=== PATIENT | male | born 1940 | race Caucasian/White ===

== ENCOUNTER 2017-09-19 13:48 | Emergency (ER) | payer OTHER | END 2017-09-19 14:57 | disposition home or self-care (01) | LOC: M ED 13:48 | DX: J44.9 Chronic obstructive pulmonary disease, unspecified (principal); I51.9 Heart disease, unspecified; Z95.5 Presence of coronary angioplasty implant and graft; Z87.891 Personal history of nicotine dependence; Z79.82 Long term (current) use of aspirin; Z79.899 Other long term (current) drug therapy | CPT/HCPCS: 99283 ==

== ENCOUNTER 2017-11-21 11:41 | Emergency (ER) | payer OTHER ==
[2017-11-21] MEDS ORDERED: MORPHINE 4 MG/ML 1ML VIAL (J2270) IV (12:30)
[2017-11-21] MEDS ORDERED: ONDANSETRON 4MG/2ML VIAL (J2405) IV (12:30)
[2017-11-21] MEDS: NS 1,000 ML IV (12:30)
[2017-11-21 12:53] LABS: BASO # 0.1 10^3/uL (0.0-0.2); EOS # 0.2 10^3/uL (0.0-0.50); EOS % 1.7 % (0.0-3.0); HEMATOCRIT 42.3 % (42.0-52.0); IMMATURE GRANULOCYTE % 0.2 % (0-3.0); LYMPH # 1.4 10^3/uL (1.5-4.5); LYMPH % 15.2 % (24.0-44.0); MEAN CORPUSCULAR HEMOGLOBIN 31.1 pg (27.0-33.0); MEAN CORPUSCULAR HGB CONC 33.1 g/dl (32.0-36.5); MONO # 0.9 10^3/uL (0.0-0.8); MONO % 9.9 % (0.0-5.0); NEUTROPHILS # 6.7 10^3/uL (1.8-7.7); PLATELET COUNT, AUTOMATED 268 10^3/uL (150-450); WHITE BLOOD COUNT 9.3 10^3/uL (4.0-10.0)
[2017-11-21 13:21] LABS: ANION GAP 7 MEQ/L (8-16); BLOOD UREA NITROGEN 18 MG/DL (7-18); CALCIUM LEVEL 8.5 MG/DL (8.8-10.2); CARBON DIOXIDE LEVEL 22 MEQ/L (21-32); CHLORIDE LEVEL 109 MEQ/L (98-107); CREATININE FOR GFR 1.52 MG/DL (0.70-1.30); FREE T4 0.87 NG/DL (0.76-1.46); GLOMERULAR FILTRATION RATE 47.6 (>42); GLUCOSE, FASTING 93 MG/DL (70-100); POTASSIUM SERUM 3.9 MEQ/L (3.5-5.1); SODIUM LEVEL 138 MEQ/L (136-145)
[2017-11-21] MEDS: ACETAMINOPHEN 325 MG TAB PO (13:21)
[2017-11-21] MEDS ORDERED: ISOVUE-370 76% 100ML VIAL (Q9967) As Ordered (13:29)
== END 2017-11-21 14:56 | disposition home or self-care (01) ==
LOC: M ED 11:41
DX: R13.10 Dysphagia, unspecified (principal); K21.9 Gastro-esophageal reflux disease without esophagitis; Z79.82 Long term (current) use of aspirin; Z79.899 Other long term (current) drug therapy
CPT/HCPCS: Q9967

== ENCOUNTER → 2018-01-13 | Outpatient (CLI) | payer OTHER ==
[~2018-01-13] MED LIST: E-Z-GAS II EFFERVESCENT PACKET (SODIUM BICARB./CITRIC ACID/SIMETHICONE) As Ordered; E-Z-HD 98% w/w 340GM SUSP BTL As Ordered; E-Z-PAQUE 96% w/w SUSP 176GM BTL As Ordered
== END ==
LOC: M RAD 08:34
DX: R93.3 Abnormal findings on diagnostic imaging of other parts of digestive tract (principal); J38.3 Other diseases of vocal cords
CPT/HCPCS: 74220

== ENCOUNTER 2018-04-27 08:44 | Day surgery (SDC) | payer MEDICARE, OTHER ==
[2018-04-27] MEDS: NS 1,000 ML IV (09:00)
[2018-04-27] MEDS ORDERED: LIDOCAINE 1% MDV 20ML VIAL As Ordered (10:56)
[2018-04-27] MEDS ORDERED: PROPOFOL 200 MG/20 ML VIAL As Ordered ×2 (10:56→11:06)
[2018-04-27] MEDS ORDERED: PHENYLephrine HCL 500 MCG/5 ML (100MCG/ML) SYRINGE (J2370) As Ordered (11:05)
== END 2018-04-27 11:39 | disposition home or self-care (01) ==
LOC: M OPP 08:44
DX: R13.12 Dysphagia, oropharyngeal phase (principal); R12 Heartburn; K22.2 Esophageal obstruction; I12.9 Hypertensive chronic kidney disease with stage 1 through stage 4 chronic kidney disease, or unspecified chronic kidney disease; Z95.5 Presence of coronary angioplasty implant and graft; I25.10 Atherosclerotic heart disease of native coronary artery without angina pectoris; E78.5 Hyperlipidemia, unspecified; E03.9 Hypothyroidism, unspecified; K21.9 Gastro-esophageal reflux disease without esophagitis; D64.9 Anemia, unspecified; M19.90 Unspecified osteoarthritis, unspecified site; F32.9 Major depressive disorder, single episode, unspecified; Z85.46 Personal history of malignant neoplasm of prostate; Z92.3 Personal history of irradiation; J44.9 Chronic obstructive pulmonary disease, unspecified; G47.30 Sleep apnea, unspecified; N18.3 Chronic kidney disease, stage 3 (moderate); H25.9 Unspecified age-related cataract; Z87.891 Personal history of nicotine dependence; Z79.82 Long term (current) use of aspirin; Z79.899 Other long term (current) drug therapy; Z79.02 Long term (current) use of antithrombotics/antiplatelets; Z80.1 Family history of malignant neoplasm of trachea, bronchus and lung
CPT/HCPCS: 43450

== ENCOUNTER 2018-06-08 13:18 | Emergency (ER) | payer MEDICARE ==
[2018-06-08 14:18] LABS: BASO % 0.1 % (0.0-1.0); EOS % 0.1 % (0.0-3.0); HEMATOCRIT 35.5 % (42.0-52.0); IMMATURE GRANULOCYTE % 2.2 % (0-3.0); LYMPH # 0.9 10^3/uL (1.5-4.5); LYMPH % 7.5 % (24.0-44.0); MEAN CORPUSCULAR HEMOGLOBIN 32.2 pg (27.0-33.0); MEAN CORPUSCULAR HGB CONC 33.8 g/dl (32.0-36.5); MEAN CORPUSCULAR VOLUME 95.2 fl (80.0-96.0); MONO # 0.7 10^3/uL (0.0-0.8); MONO % 5.7 % (0.0-5.0); NEUTROPHILS # 10.2 10^3/uL (1.8-7.7); NEUTROPHILS % 84.4 % (36.0-66.0); PLATELET COUNT, AUTOMATED 289 10^3/uL (150-450); RED BLOOD COUNT 3.73 10^6/uL (4.30-6.10); RED CELL DISTRIBUTION WIDTH 12.3 % (11.5-14.5)
[2018-06-08] MEDS: methylPREDNISolone INJ 125 MG/2 ML VIAL (J2930) IV (14:19)
[2018-06-08] MEDS: IPRATROPIUM 0.5MG/ALBUTEROL 2.5MG INH SOL UD 3ML (DUONEB)(J7620) NEB (14:34)
[2018-06-08] MEDS: ALBUTEROL SULFATE 2.5 MG/0.5 ML INH NEB SOLN INH (14:34)
[2018-06-08 14:39] LABS: ABG BASE EXCESS -4.1 (-2.0-2.0); ABG HCO3 19.5 MEQ/L (22.0-26.0); ABG O2 SATURATION 97.7 % (95.0-99.0); ABG PARTIAL PRESSURE CO2 31.2 mmHg (35.0-45.0); ABG PARTIAL PRESSURE O2 93.8 mmHg (75.0-100.0); ABG STANDARD HCO3 21.1 MEQ/L (22.0-26.0); ABG TOTAL CO2 20.4 MEQ/L (23.0-31.0); ABG pH (ARTERIAL) 7.413 UNITS (7.350-7.450)
[2018-06-08 14:49] LABS: ALBUMIN 3.4 GM/DL (3.2-5.2); ALBUMIN/GLOBULIN RATIO 1.13 (1.00-1.93); ALKALINE PHOSPHATASE 56 U/L (45-117); ALT/SGPT 31 U/L (12-78); ANION GAP 9 MEQ/L (8-16); AST/SGOT 15 U/L (7-37); BILIRUBIN,DIRECT 0.1 MG/DL (0.0-0.2); BILIRUBIN,TOTAL 0.3 MG/DL (0.2-1.0); BLOOD UREA NITROGEN 38 MG/DL (7-18); CALCIUM LEVEL 8.4 MG/DL (8.8-10.2); CARBON DIOXIDE LEVEL 20 MEQ/L (21-32); CHLORIDE LEVEL 111 MEQ/L (98-107); CPK CREATINE PHOSPHOKINASE 100 U/L (39-308); CREATININE FOR GFR 1.72 MG/DL (0.70-1.30); GLOMERULAR FILTRATION RATE 41.1 (>42); GLUCOSE, FASTING 112 MG/DL (70-100); NT-PRO BNP 347 PG/ML (<450); POTASSIUM SERUM 4.2 MEQ/L (3.5-5.1); SODIUM LEVEL 140 MEQ/L (136-145); THYROXINE (T4) 6.6 UG/DL (4.5-12.0); TOTAL PROTEIN 6.4 GM/DL (6.4-8.2); TROPONIN I < 0.02 NG/ML (< 0.10)
[2018-06-08 15:07] LABS: LACTIC ACID SEPSIS PROTOCOL 1.9 MMOL/L (0.4-2.0)
[2018-06-08 15:09] LABS: INFLUENZA A AMPLIFICATION NEGATIVE (NEGATIVE); INFLUENZA B AMPLIFICATION NEGATIVE (NEGATIVE)
[2018-06-08] MEDS: NS 500 ML IV (15:59)
[2018-06-08] MEDS: MOXIFLOXACIN 400 MG TAB PO (16:56)
== END 2018-06-08 17:10 | disposition home or self-care (01) ==
LOC: M ED 13:18
DX: J44.1 Chronic obstructive pulmonary disease with (acute) exacerbation (principal); E86.0 Dehydration; J20.9 Acute bronchitis, unspecified; F32.9 Major depressive disorder, single episode, unspecified; F41.9 Anxiety disorder, unspecified; M19.90 Unspecified osteoarthritis, unspecified site; K21.9 Gastro-esophageal reflux disease without esophagitis; G47.30 Sleep apnea, unspecified; Z95.5 Presence of coronary angioplasty implant and graft; Z87.891 Personal history of nicotine dependence; Z86.79 Personal history of other diseases of the circulatory system; Z79.82 Long term (current) use of aspirin; Z79.899 Other long term (current) drug therapy
CPT/HCPCS: J2930

== ENCOUNTER 2018-06-28 12:04 | Emergency (ER) | payer MEDICARE ==
[2018-06-28 12:40] LABS: BASO % 0.7 % (0.0-1.0); EOS # 0.3 10^3/uL (0.0-0.50); EOS % 5.4 % (0.0-3.0); HEMATOCRIT 36.5 % (42.0-52.0); HEMOGLOBIN 11.8 g/dl (13.5-17.5); IMMATURE GRANULOCYTE % 0.5 % (0-3.0); LYMPH # 0.9 10^3/uL (1.5-4.5); LYMPH % 14.4 % (24.0-44.0); MEAN CORPUSCULAR HEMOGLOBIN 32.1 pg (27.0-33.0); MEAN CORPUSCULAR HGB CONC 32.3 g/dl (32.0-36.5); MEAN CORPUSCULAR VOLUME 99.2 fl (80.0-96.0); MONO # 0.8 10^3/uL (0.0-0.8); MONO % 14.1 % (0.0-5.0); NEUTROPHILS # 3.8 10^3/uL (1.8-7.7); NEUTROPHILS % 64.9 % (36.0-66.0); PLATELET COUNT, AUTOMATED 222 10^3/uL (150-450); RED BLOOD COUNT 3.68 10^6/uL (4.30-6.10); RED CELL DISTRIBUTION WIDTH 12.4 % (11.5-14.5); WHITE BLOOD COUNT 5.9 10^3/uL (4.0-10.0)
[2018-06-28 12:43] LABS: PROTHROMBIN TIME 13.3 SECONDS (12.1-14.4)
[2018-06-28 13:00] LABS: ALBUMIN 3.1 GM/DL (3.2-5.2); ALBUMIN/GLOBULIN RATIO 0.79 (1.00-1.93); ALKALINE PHOSPHATASE 73 U/L (45-117); ALT/SGPT 35 U/L (12-78); ANION GAP 10 MEQ/L (8-16); AST/SGOT 20 U/L (7-37); BILIRUBIN,DIRECT 0.1 MG/DL (0.0-0.2); BILIRUBIN,TOTAL 0.4 MG/DL (0.2-1.0); BLOOD UREA NITROGEN 18 MG/DL (7-18); CALCIUM LEVEL 8.3 MG/DL (8.8-10.2); CARBON DIOXIDE LEVEL 23 MEQ/L (21-32); CHLORIDE LEVEL 109 MEQ/L (98-107); CPK CREATINE PHOSPHOKINASE 82 U/L (39-308); CREATININE FOR GFR 1.87 MG/DL (0.70-1.30); GLOMERULAR FILTRATION RATE 37.4 (>42); GLUCOSE, FASTING 98 MG/DL (70-100); LIPASE 154 U/L (73-393); MB/CK RELATIVE INDEX 2.68 (< OR =4); NT-PRO BNP 280 PG/ML (<450); SODIUM LEVEL 142 MEQ/L (136-145); TROPONIN I < 0.02 NG/ML (< 0.10)
[2018-06-28 17:26] LABS: CPK CREATINE PHOSPHOKINASE 85 U/L (39-308); MB/CK RELATIVE INDEX 2.59 (< OR =4); TROPONIN I < 0.02 NG/ML (< 0.10)
== END 2018-06-28 18:07 | disposition home or self-care (01) ==
LOC: M ED 12:04
DX: R07.9 Chest pain, unspecified (principal); R94.31 Abnormal electrocardiogram [ECG] [EKG]; I12.9 Hypertensive chronic kidney disease with stage 1 through stage 4 chronic kidney disease, or unspecified chronic kidney disease; N18.9 Chronic kidney disease, unspecified; J44.9 Chronic obstructive pulmonary disease, unspecified; E78.5 Hyperlipidemia, unspecified; E07.9 Disorder of thyroid, unspecified; F33.9 Major depressive disorder, recurrent, unspecified; Z85.46 Personal history of malignant neoplasm of prostate; Z92.3 Personal history of irradiation; Z87.891 Personal history of nicotine dependence; Z95.5 Presence of coronary angioplasty implant and graft; Z79.899 Other long term (current) drug therapy; Z79.890 Hormone replacement therapy; Z79.01 Long term (current) use of anticoagulants; Z87.09 Personal history of other diseases of the respiratory system; Z86.79 Personal history of other diseases of the circulatory system
CPT/HCPCS: 71045

== ENCOUNTER 2019-04-07 15:55 | Emergency (ER) | payer MEDICARE, OTHER ==
[~2019-04-07] VITALS: Ht 165.1 cm; Wt 69.1 kg
[~2019-04-07 15:55] MED LIST changes: +ALL10TAB28 PO; +ASPI81TA26 PO; +AVEL1TAB3 PO; +BENZ200C70 PO; +BREO1INH INH; +BUSP10TA; +CART120C PO; +CLOP75TA2 PO; +DILT120C77; +DILT120C77 PO; -E-Z-GAS II EFFERVESCENT PACKET (SODIUM BICARB./CITRIC ACID/SIMETHICONE) As Ordered; -E-Z-HD 98% w/w 340GM SUSP BTL As Ordered; -E-Z-PAQUE 96% w/w SUSP 176GM BTL As Ordered; +FLUTISP; +FOLI1TAB11 PO; +FURO20TA2 PO; +IPRAT-ALBUT; +IRBE75TA5; +ISOS30TA4 PO; +ISOS40TASA PO; +LEVO88TA3 PO; +MAGICMW MT; +MONT10TA2 PO; +NITR0.4S14 SL; +PANT20TA2 PO; +PLAV1TAB2 PO; +PRED10TA2; +PRED20TA PO; +RANI150T PO; +RANI15TA PO; +SERT-141 PO; +SIMV40TA2 PO; +SPIR-10; +SPIR-10 PO; +SUCR1TA PO; +TYLE325T5 PO; +VALS1TAB49 PO; +VALS1TAB66 PO; +VENTAER IN
[2019-04-07] MEDS ORDERED: MIRA3350 PO (16:05)
[2019-04-07] MEDS ORDERED: IPRA0.00 INH (16:19)
[2019-04-07] MEDS ORDERED: AZEL1SPR3 NARES (17:35)
[2019-04-07 18:21] VITALS: BP 131/90
--- NOTE | 2019-04-07 20:52 | ECGEPIP ---
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
== END 2019-04-07 18:22 | disposition home or self-care (01) ==
LOC: M ED 15:55
DX: R09.82 Postnasal drip (principal); J44.9 Chronic obstructive pulmonary disease, unspecified; F41.9 Anxiety disorder, unspecified; J30.9 Allergic rhinitis, unspecified; R30.0 Dysuria; K21.9 Gastro-esophageal reflux disease without esophagitis; I10 Essential (primary) hypertension; E78.5 Hyperlipidemia, unspecified; N18.3 Chronic kidney disease, stage 3 (moderate); Z87.891 Personal history of nicotine dependence; Z79.82 Long term (current) use of aspirin; Z79.899 Other long term (current) drug therapy

== ENCOUNTER 2019-06-28 05:21 | Emergency (ER) | payer MEDICARE, OTHER ==
[~2019-06-28] VITALS: Ht 152.4 cm; Wt 68.2 kg
[~2019-06-28 05:21] MED LIST changes: -ALL10TAB28 PO; +ALL10TAB29 PO; +AZEL1SPR3 NARES; +IPRA0.00 INH; +MIRA3350 PO
[2019-06-28] MEDS ORDERED: PRED25TA PO (05:35)
[2019-06-28] MEDS ORDERED: SYMB16INH INH (05:35)
[2019-06-28] MEDS ORDERED: AMLO2.5T3 PO (05:35)
[2019-06-28] MEDS ORDERED: PANT40TA3 PO (05:35)
[2019-06-28] MEDS ORDERED: LORA0.5T11 PO (05:35)
[2019-06-28] MEDS ORDERED: SERT-138 PO (05:35)
[2019-06-28] MEDS ORDERED: [UNRECOGNIZED DRUG - CODE] NARES (05:35)
[2019-06-28] MEDS ORDERED: FURO20TA2 PO (05:35)
[2019-06-28] MEDS ORDERED: [UNRECOGNIZED DRUG - CODE] PO (06:06)
[2019-06-28 06:30] VITALS: BP 126/80
== END 2019-06-28 06:37 | disposition home or self-care (01) ==
LOC: M ED 05:21
DX: J02.9 Acute pharyngitis, unspecified (principal); J44.9 Chronic obstructive pulmonary disease, unspecified; N18.9 Chronic kidney disease, unspecified; K21.9 Gastro-esophageal reflux disease without esophagitis; I25.10 Atherosclerotic heart disease of native coronary artery without angina pectoris; I12.9 Hypertensive chronic kidney disease with stage 1 through stage 4 chronic kidney disease, or unspecified chronic kidney disease; Z87.891 Personal history of nicotine dependence

== ENCOUNTER → 2019-07-13 | Outpatient (CLI) | payer OTHER ==
[~2019-07-13] MED LIST changes: +AMLO2.5T3 PO; +LORA0.5T11 PO; +PANT40TA3 PO; +PRED25TA PO; +SERT-138 PO; +SYMB16INH INH; +[UNRECOGNIZED DRUG - CODE] NARES; +[UNRECOGNIZED DRUG - CODE] PO
[2019-07-13 14:48] LABS: CREATININE FOR GFR 1.85 MG/DL (0.70-1.30); GLOMERULAR FILTRATION RATE 37.7 (>42)
== END ==
LOC: M LAB 13:44
PROVIDERS: ATTEND Physician Assistant Medical
DX: R13.10 Dysphagia, unspecified (principal)

== ENCOUNTER → 2019-07-15 | Outpatient (CLI) | payer OTHER ==
[2019-07-15 11:21] LABS: CREATININE FOR GFR 1.54 MG/DL (0.70-1.30); GLOMERULAR FILTRATION RATE 46.6 (>42)
== END ==
LOC: M LAB 10:14
PROVIDERS: ATTEND Otolaryngology
DX: R13.0 Aphagia (principal); R49.0 Dysphonia

== ENCOUNTER → 2019-07-20 | Outpatient (CLI) | payer OTHER ==
[~2019-07-20] MED LIST changes: +ISOVUE-370 76% 100ML VIAL (Q9967) As Ordered ONE
--- NOTE | 2019-07-20 10:34 | REP ---
CT neck: 07/20/2019. Indication: Dysphasia. Comparison: 11/21/2017. Technique: Axial images of the neck soft tissues were obtained following 75 ml IV Isovue 370 administration with coronal and sagittal reconstructions provided. New findings: No abnormal solid soft tissue masses, abnormal fluid collections or cervical lymphadenopathy are present. The vascular structures are stable. The airway is patent. No acute ocular, intraorbital or intracranial abnormalities are detected. No significant air-fluid levels are present within the visualized paranasal sinuses/mastoid air cells. Impression: No abnormal solid neck soft tissue mass, abnormal fluid collection or cervical lymphadenopathy. Electronically Signed by Clyde Machuca DO 07/20/2019 10:26 A
== END ==
LOC: M RAD 09:33
PROVIDERS: ATTEND Physician Assistant Medical
DX: R13.10 Dysphagia, unspecified (principal)
CPT/HCPCS: 70491; Q9967

== ENCOUNTER 2020-04-25 17:30 | Emergency (ER) | payer OTHER, MEDICARE ==
[~2020-04-25 17:30] MED LIST changes: -ALL10TAB29 PO; +CETI-24 PO; +IRBE75TA4; -IRBE75TA5; -ISOVUE-370 76% 100ML VIAL (Q9967) As Ordered ONE; -LORA0.5T11 PO; +LORA0.5T5 PO; -MONT10TA2 PO; +MONT10TA4 PO; -PANT20TA2 PO; +PANT20TA6 PO; +PANT40TA29 PO; -PANT40TA3 PO; -SIMV40TA2 PO; +SIMV40TA20 PO; -VALS1TAB49 PO; +VALS40TA9 PO; +dexameTHASONE 20MG/5ML VIAL (J1100 PER 1MG) As Ordered ONE
[2020-05-28 12:50] LABS: BASO % 0.3 % (0.0-1.0); EOS % 0.1 % (0.0-3.0); HEMATOCRIT 36.4 % (42.0-52.0); HEMOGLOBIN 11.8 g/dl (13.5-17.5); LYMPH # 0.6 10^3/uL (1.5-5.0); LYMPH % 6.3 % (24.0-44.0); MEAN CORPUSCULAR HGB CONC 32.4 g/dl (32.0-36.5); MEAN CORPUSCULAR VOLUME 98.6 fl (80.0-96.0); MONO # 0.7 10^3/uL (0.0-0.8); MONO % 7.7 % (0.0-5.0); NEUTROPHILS # 7.9 10^3/uL (1.5-8.5); NEUTROPHILS % 84.7 % (36.0-66.0); PLATELET COUNT, AUTOMATED 225 10^3/uL (150-450); RED BLOOD COUNT 3.69 10^6/uL (4.30-6.10); WHITE BLOOD COUNT 9.3 10^3/uL (4.0-10.0)
[2020-06-08 11:55] LABS: ALBUMIN 3.5 GM/DL (3.2-5.2); ALT/SGPT 32 U/L (12-78); BILIRUBIN,TOTAL 0.2 MG/DL (0.2-1.0); BLOOD UREA NITROGEN 21 MG/DL (7-18); CALCIUM LEVEL 8.5 MG/DL (8.8-10.2); CARBON DIOXIDE LEVEL 24 MEQ/L (21-32); CHLORIDE LEVEL 108 MEQ/L (98-107); CK-MB VALUE MASS 1.9 NG/ML (<3.6); CPK CREATINE PHOSPHOKINASE 66 U/L (39-308); CREATININE FOR GFR 1.74 MG/DL (0.70-1.30); GLOMERULAR FILTRATION RATE 40.4 (>35); GLUCOSE, FASTING 111 MG/DL (70-100); MB/CK RELATIVE INDEX 2.88 (< OR =4); NT-PRO BNP 545 PG/ML (<450); POTASSIUM SERUM 4.7 MEQ/L (3.5-5.1); SODIUM LEVEL 140 MEQ/L (136-145); TOTAL PROTEIN 6.1 GM/DL (6.4-8.2); TROPONIN I < 0.02 NG/ML (< 0.10)
== END 2020-04-25 18:57 | disposition home or self-care (01) ==
LOC: M ED 17:30
DX: J44.1 Chronic obstructive pulmonary disease with (acute) exacerbation (principal); C61 Malignant neoplasm of prostate; I10 Essential (primary) hypertension; F17.210 Nicotine dependence, cigarettes, uncomplicated; Z79.899 Other long term (current) drug therapy
CPT/HCPCS: 71046; 80053; 82550; 82553; 83880; 84484; 85025; 87581; 87633; 87798; 96374; 99284; J1100

== ENCOUNTER 2020-05-22 14:17 | Emergency (ER) | payer MEDICARE, OTHER ==
[~2020-05-22] VITALS: Ht 152.4 cm; Wt 74.9 kg
[~2020-05-22 14:17] MED LIST changes: -dexameTHASONE 20MG/5ML VIAL (J1100 PER 1MG) As Ordered ONE
[2020-05-22 14:52] LABS: BASO # 0.1 10^3/uL (0.0-0.2); BASO % 0.5 % (0.0-1.0); EOS % 0.1 % (0.0-3.0); HEMATOCRIT 36.9 % (42.0-52.0); LYMPH # 0.7 10^3/uL (1.5-5.0); LYMPH % 6.4 % (24.0-44.0); MEAN CORPUSCULAR HEMOGLOBIN 32.3 pg (27.0-33.0); MEAN CORPUSCULAR HGB CONC 32.5 g/dl (32.0-36.5); MEAN CORPUSCULAR VOLUME 99.2 fl (80.0-96.0); MONO # 0.5 10^3/uL (0.0-0.8); MONO % 4.6 % (0.0-5.0); NEUTROPHILS # 9.3 10^3/uL (1.5-8.5); NEUTROPHILS % 87.1 % (36.0-66.0); PLATELET COUNT, AUTOMATED 235 10^3/uL (150-450); RED BLOOD COUNT 3.72 10^6/uL (4.30-6.10); WHITE BLOOD COUNT 10.7 10^3/uL (4.0-10.0)
--- NOTE | 2020-05-22 14:56 | REPVR ---
PROCEDURE INFORMATION: Exam: XR Chest, 1 View Exam date and time: 05/22/2020 2:26 PM Age: 80 years old Clinical indication: Shortness of breath; Additional info: Dyspnea/cough TECHNIQUE: Imaging protocol: XR of the chest Views: 1 view. COMPARISON: CR PORTABLE CHEST X-RAY 06/28/2018 12:45 PM FINDINGS: Lungs: Unremarkable. No consolidation. Pleural space: Unremarkable. No pleural effusion. No pneumothorax. Heart/Mediastinum: Unremarkable. No cardiomegaly. Bones/joints: Unremarkable. IMPRESSION: No acute findings. Electronically signed by: Jhonatan Anthony On 05/22/2020 14:56:47 PM
[2020-05-22 15:23] LABS: ALBUMIN 3.5 GM/DL (3.2-5.2); ALT/SGPT 38 U/L (12-78); BILIRUBIN,DIRECT < 0.1 MG/DL (0.0-0.2); BILIRUBIN,TOTAL 0.3 MG/DL (0.2-1.0); BLOOD UREA NITROGEN 17 MG/DL (7-18); CALCIUM LEVEL 8.6 MG/DL (8.8-10.2); CARBON DIOXIDE LEVEL 25 MEQ/L (21-32); CHLORIDE LEVEL 109 MEQ/L (98-107); CK-MB VALUE MASS 3.2 NG/ML (<3.6); CPK CREATINE PHOSPHOKINASE 80 U/L (39-308); CREATININE FOR GFR 1.77 MG/DL (0.70-1.30); GLOMERULAR FILTRATION RATE 39.6 (>35); GLUCOSE, FASTING 113 MG/DL (70-100); POTASSIUM SERUM 4.7 MEQ/L (3.5-5.1); SODIUM LEVEL 141 MEQ/L (136-145); TOTAL PROTEIN 6.3 GM/DL (6.4-8.2); TROPONIN I < 0.02 NG/ML (< 0.10)
[2020-05-22] MEDS ORDERED: BREO1INH PO (16:15)
[2020-05-22] MEDS ORDERED: PRIM50TA6 PO (16:15)
--- NOTE | 2020-05-22 18:21 | REPVR ---
PROCEDURE INFORMATION: Exam: CT Neck Without Contrast Exam date and time: 05/22/2020 6:05 PM Age: 80 years old Clinical indication: Other: Fullness, CR 1.77 TECHNIQUE: Imaging protocol: Computed tomography images of the neck without contrast. Radiation optimization: All CT scans at this facility use at least one of these dose optimization techniques: automated exposure control; mA and/or kV adjustment per patient size (includes targeted exams where dose is matched to clinical indication); or iterative reconstruction. COMPARISON: CT Neck with contrast 07/20/2019 10:05 AM FINDINGS: No focal subcutaneous soft tissue edema. Parapharyngeal soft tissue planes are symmetric and appear normal. Posterior nasopharynx soft tissues are unremarkable. Imaged skull base structures are intact. No abnormally enlarged cervical chain or jugulodigastric lymph nodes. Muscles of mastication and strap muscles of the neck appear normal. Parotid and minor salivary glands are unremarkable. Floor of the mouth and tongue base soft tissues appear normal. Structures of the larynx appear symmetric and normal. Thyroid gland and thoracic inlet structures are unremarkable. Bilateral calcified apical pleural thickening/scar, stable Bony structures are unremarkable for age. 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 Electronically signed by: Oz Melo On 05/22/2020 18:20:56 PM
[2020-05-22 19:09] VITALS: BP 137/68
--- NOTE | 2020-05-29 09:12 | ECGEPIP ---
[facility] - ED Test Date: 2020-05-22 Pat Name: YAMILET LOBO Department: Room: - Gender: Male Desktop Operator: TATI : 1940 Requested By: WANG Flores Order Number: [id number] Reading MD: Libia Montiel Measurements Intervals [place] Rate: 82 P: 62 [place]: 164 QRS: 38 QRSD: 89 T: 83 QT: 385 QTc: 450 Interpretive Statements SINUS RHYTHM NONSPECIFIC ST & T-WAVE ABNORMALITY BORDERLINE ECG SEE SCANNED DOWNTIME REPORT
== END 2020-05-22 19:10 | disposition home or self-care (01) ==
LOC: M ED 14:17
DX: R07.0 Pain in throat (principal); R05 Cough; I10 Essential (primary) hypertension; C61 Malignant neoplasm of prostate; E78.5 Hyperlipidemia, unspecified; N18.9 Chronic kidney disease, unspecified; Z79.52 Long term (current) use of systemic steroids; Z79.82 Long term (current) use of aspirin; Z79.899 Other long term (current) drug therapy; Z87.891 Personal history of nicotine dependence

== ENCOUNTER 2020-06-25 14:48 | Emergency (ER) | payer OTHER ==
[~2020-06-25] VITALS: Ht 167.6 cm; Wt 74.8 kg
[~2020-06-25 14:48] MED LIST changes: +BREO1INH PO; +PRIM50TA6 PO
[2020-06-25] MEDS ORDERED: methylPREDNISolone 125MG 2ML VIAL IV ONE (15:15)
[2020-06-25] MEDS ORDERED: IPRATROPIUM 0.5MG/ALBUTEROL 2.5MG INH SOL UD 3ML (DUONEB) NEB ONE (15:15)
[2020-06-25] MEDS ORDERED: AMLO1TAB24 PO (15:16)
[2020-06-25] MEDS ORDERED: PRIM50TA6 PO (15:16)
[2020-06-25] MEDS ORDERED: PRED10TA2 PO ×2 (15:16→17:24)
[2020-06-25] MEDS ORDERED: ZOLO100T PO (15:16)
[2020-06-25] MEDS ORDERED: LISI10TA4 PO (15:16)
[2020-06-25] MEDS ORDERED: ATIV1TAB10 PO (15:16)
[2020-06-25 15:33] LABS: BASO % 0.3 % (0.0-1.0); EOS % 0.1 % (0.0-3.0); HEMATOCRIT 35.8 % (42.0-52.0); HEMOGLOBIN 11.6 g/dl (13.5-17.5); LYMPH # 0.4 10^3/uL (1.5-5.0); LYMPH % 3.8 % (24.0-44.0); MEAN CORPUSCULAR HGB CONC 32.4 g/dl (32.0-36.5); MEAN CORPUSCULAR VOLUME 98.9 fl (80.0-96.0); MONO # 0.4 10^3/uL (0.0-0.8); MONO % 3.1 % (0.0-5.0); NEUTROPHILS # 10.3 10^3/uL (1.5-8.5); NEUTROPHILS % 92.2 % (36.0-66.0); PLATELET COUNT, AUTOMATED 228 10^3/uL (150-450); RED BLOOD COUNT 3.62 10^6/uL (4.30-6.10); WHITE BLOOD COUNT 11.2 10^3/uL (4.0-10.0)
[2020-06-25 15:45] LABS: INR 0.91; PARTIAL THROMBOPLASTIN TIME 23.5 SECONDS (24.2-38.5); PROTHROMBIN TIME 12.5 SECONDS (12.5-14.3)
--- NOTE | 2020-06-25 15:48 | REPVR ---
PROCEDURE INFORMATION: Exam: XR Chest, 1 View Exam date and time: 06/25/2020 3:18 PM Age: 80 years old Clinical indication: Cough and dyspnea; Additional info: Dyspnea/cough TECHNIQUE: Imaging protocol: XR of the chest Views: 1 view. COMPARISON: CR Chest, 2 view PA, Lat 05/22/2020 2:25 PM FINDINGS: Tubes, catheters and devices: External monitoring devices are present. Lungs: Unremarkable. No consolidation. Pleural space: Unremarkable. No pleural effusion. No pneumothorax. Heart/Mediastinum: Unremarkable. No cardiomegaly. Bones/joints: An apparent mild levoscoliosis of the thoracic spine. IMPRESSION: No acute findings Electronically signed by: Lisa Russ On 06/25/2020 15:48:17 PM
[2020-06-25 16:10] LABS: ALBUMIN 3.5 GM/DL (3.2-5.2); ALT/SGPT 21 U/L (12-78); BILIRUBIN,DIRECT < 0.1 MG/DL (0.0-0.2); BILIRUBIN,TOTAL 0.1 MG/DL (0.2-1.0); BLOOD UREA NITROGEN 26 MG/DL (7-18); CALCIUM LEVEL 8.4 MG/DL (8.8-10.2); CARBON DIOXIDE LEVEL 22 MEQ/L (21-32); CHLORIDE LEVEL 110 MEQ/L (98-107); CK-MB VALUE MASS 2.5 NG/ML (<3.6); CPK CREATINE PHOSPHOKINASE 58 U/L (39-308); CREATININE FOR GFR 1.89 MG/DL (0.70-1.30); GLOMERULAR FILTRATION RATE 36.7 (>35); GLUCOSE, FASTING 119 MG/DL (70-100); MB/CK RELATIVE INDEX 4.31 (< OR =4); NT-PRO BNP 270 PG/ML (<450); POTASSIUM SERUM 4.7 MEQ/L (3.5-5.1); SODIUM LEVEL 139 MEQ/L (136-145); THYROID STIMULATING HORMONE 0.843 uIU/ML (0.358-3.740); TOTAL PROTEIN 6.2 GM/DL (6.4-8.2); TROPONIN I < 0.02 NG/ML (< 0.10)
[2020-06-25 17:23] VITALS: O2SAT 97
[2020-06-25 18:16] VITALS: BP 133/65
--- NOTE | 2020-06-26 07:01 | ECGEPIP ---
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
== END 2020-06-25 18:18 | disposition home or self-care (01) ==
LOC: M ED 14:48
DX: J44.1 Chronic obstructive pulmonary disease with (acute) exacerbation (principal); I50.9 Heart failure, unspecified; N18.30 Chronic kidney disease, stage 3 unspecified; K21.9 Gastro-esophageal reflux disease without esophagitis; E03.9 Hypothyroidism, unspecified; Z87.891 Personal history of nicotine dependence; Z79.899 Other long term (current) drug therapy
CPT/HCPCS: 36415; 71045; 80048; 80076; 82550; 82553; 83880; 84443; 84484; 85025; 85610; 85730; 93005; 93041; 94640; 94760; 96374; 99285; J2930

== ENCOUNTER 2020-12-13 13:19 | Emergency (ER) | payer OTHER ==
[~2020-12-13] VITALS: Ht 168.9 cm; Wt 67.3 kg
[~2020-12-13 13:19] MED LIST changes: +AMLO1TAB24 PO; +ATIV1TAB10 PO; +ISOS1TAB35 PO; -ISOS30TA4 PO; +LISI10TA22 PO; +MONT10TA10 PO; -MONT10TA4 PO; +PRED10TA2 PO; +ZOLO100T PO
[2020-12-13] MEDS ORDERED: ZONI50CA11 (14:00)
[2020-12-13] MEDS ORDERED: CREO3600 (14:00)
[2020-12-13] MEDS ORDERED: KAOP262S (14:00)
[2020-12-13] MEDS ORDERED: DICY20TA11 (14:00)
[2020-12-13] MEDS ORDERED: FOLI1TAB11 PO (14:00)
[2020-12-13] MEDS ORDERED: VITA250C5 PO (14:00)
[2020-12-13] MEDS ORDERED: LOPE1CAP5 PO (14:00)
[2020-12-13] MEDS ORDERED: FERR325T16 PO (14:00)
[2020-12-13] MEDS ORDERED: NS 1,000 ML IV ONE (14:40)
[2020-12-13] MEDS ORDERED: GI COCKTAIL 50ML BTL(HYOSCYAMINE/MAALOX/LIDOCAINE VISCOUS)(1:3:1) PO ONE (14:40)
[2020-12-13 15:13] LABS: BASO # 0.1 10^3/uL (0.0-0.2); BASO % 0.9 % (0.0-1.0); EOS # 0.5 10^3/uL (0.0-0.5); EOS % 4.1 % (0.0-3.0); HEMATOCRIT 34.6 % (42.0-52.0); HEMOGLOBIN 10.5 g/dl (13.5-17.5); LYMPH # 1.6 10^3/uL (1.5-5.0); LYMPH % 12.1 % (24.0-44.0); MEAN CORPUSCULAR HEMOGLOBIN 29.7 pg (27.0-33.0); MEAN CORPUSCULAR HGB CONC 30.3 g/dl (32.0-36.5); MEAN CORPUSCULAR VOLUME 97.7 fl (80.0-96.0); MONO # 1.4 10^3/uL (0.0-0.8); MONO % 11.1 % (2.0-8.0); NEUTROPHILS # 9.3 10^3/uL (1.5-8.5); NEUTROPHILS % 71.5 % (36.0-66.0); PLATELET COUNT, AUTOMATED 262 10^3/uL (150-450); RED BLOOD COUNT 3.54 10^6/uL (4.30-6.10); WHITE BLOOD COUNT 12.9 10^3/uL (4.0-10.0)
--- NOTE | 2020-12-13 15:25 | REP ---
INDICATION: Abdominal Pain. COMPARISON: AP chest 06/25/2020, CT abdomen 04/17/2016. TECHNIQUE: PA chest with two-view abdomen FINDINGS: PA chest: Lung [place] are well inflated. No pleural effusion, acute infiltrate, atelectasis or mass. No pulmonary nodules. There is some apical pleural scarring bilaterally and unchanged. Heart is not enlarged. The aorta is mildly calcified at the arch and minimally tortuous following the curve of the spine which has a dextrorotatory curvature in the lower thoracic and upper lumbar region. No mediastinal or hilar mass nor contour abnormality. Some degenerative changes in the shoulders are mild. No free air under the diaphragm. Flat and upright abdomen: The two views show a right upper quadrant clips from prior cholecystectomy. There are clips overlying the prostate bed. Nonspecific gas pattern with stool and gas scattered throughout the colon without dilated loops or air-fluid levels. Small bowel loops with scattered air without dilatation. No mass. No abnormal calcification over the renal fossae. Degenerative changes of the spine at endplates and lower lumbar facets noted. 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 The appearance is unchanged from 04/17/2016. Couple of calcifications in left pelvis and 1 in the right true pelvis as seen on previous CT. These are vascular. IMPRESSION: 1. Nonspecific gas pattern without obstruction, mass or free air. Patient is status post cholecystectomy. No dilated loops. 2. 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 Avascular necrosis changes both femoral heads, stable in appearance since the CT of 04/17/2016. 3. No acute cardiopulmonary change. <Electronically signed by Thiago Calix > 12/13/20 152
[2020-12-13 15:32] LABS: ALBUMIN 3.7 GM/DL (3.2-5.2); ALT/SGPT 16 U/L (12-78); BILIRUBIN,DIRECT < 0.1 MG/DL (0.0-0.2); BILIRUBIN,TOTAL 0.1 MG/DL (0.2-1.0); BLOOD UREA NITROGEN 45 MG/DL (7-18); CALCIUM LEVEL 8.9 MG/DL (8.8-10.2); CARBON DIOXIDE LEVEL 22 MEQ/L (21-32); CHLORIDE LEVEL 105 MEQ/L (98-107); GLOMERULAR FILTRATION RATE 36.5 (>35); GLUCOSE, FASTING 97 MG/DL (70-100); LIPASE 361 U/L (73-393); POTASSIUM SERUM 4.9 MEQ/L (3.5-5.1); SODIUM LEVEL 136 MEQ/L (136-145); TOTAL PROTEIN 6.7 GM/DL (6.4-8.2)
[2020-12-13 17:23] VITALS: BP 133/60
== END 2020-12-13 17:24 | disposition home or self-care (01) ==
LOC: M ED 13:19
DX: E86.0 Dehydration (principal); R11.0 Nausea; R19.7 Diarrhea, unspecified; M51.36 Other intervertebral disc degeneration, lumbar region; I11.9 Hypertensive heart disease without heart failure; E03.9 Hypothyroidism, unspecified; Z87.891 Personal history of nicotine dependence; Z79.899 Other long term (current) drug therapy

== ENCOUNTER → 2021-01-03 | Outpatient (CLI) | payer OTHER ==
[~2021-01-03] MED LIST changes: +ACET-897 PO; +CREO3600; +DICY20TA11; +FERR324T21 PO; +KAOP262S; +LOPE1CAP5 PO; +VITA250C5 PO; +ZONI50CA11
[2021-01-03 12:29] LABS: FREE T4 0.9 NG/DL (0.76-1.46); THYROID STIMULATING HORMONE 7.52 uIU/ML (0.358-3.740)
== END ==
LOC: M LAB 10:07
PROVIDERS: ATTEND Internal Medicine Gastroenterology
DX: R19.7 Diarrhea, unspecified (principal)

== ENCOUNTER → 2021-01-04 | Outpatient (CLI) | payer OTHER | LOC: M LABSMTC 12:13 | PROVIDERS: ATTEND Anesthesiology | DX: Z01.818 Encounter for other preprocedural examination (principal); Z11.52 Encounter for screening for COVID-19 ==

== ENCOUNTER 2021-04-26 13:40 | Outpatient (CLI) | payer OTHER ==
[~2021-04-26] VITALS: Ht 170.2 cm; Wt 67.3 kg
[~2021-04-26 13:40] MED LIST changes: +ASCO250T20 PO; +BUDE3CAP PO; +HYDROCORTISONE 100 MG/2 ML VIAL (J1720 PER 1) IV ONE; +LEVO100V IV; +LEVO112T2 PO; +ZOLO50TA PO; +sertraline
[2021-04-26 14:27] VITALS: BP 138/64
[2021-04-26 14:48] VITALS: BP 134/61
[2021-04-26 15:45] VITALS: BP 145/67
[2021-04-26 16:10] VITALS: BP 142/72
[2021-04-26 16:46] VITALS: BP 147/67
== END 2021-04-26 16:45 | disposition home or self-care (01) ==
LOC: M INFU 13:40
PROVIDERS: ATTEND Specialist
DX: D64.9 Anemia, unspecified (principal)
CPT/HCPCS: 36430; 86920; 96374; J1720; P9016

== ENCOUNTER 2021-05-06 14:13 | Emergency (ER) | payer OTHER ==
[~2021-05-06] VITALS: Ht 167.6 cm; Wt 64.5 kg
[~2021-05-06 14:13] MED LIST changes: -HYDROCORTISONE 100 MG/2 ML VIAL (J1720 PER 1) IV ONE
[2021-05-06] MEDS ORDERED: SPIR-10 (14:25)
[2021-05-06] MEDS ORDERED: AMOX875T2 (14:25)
[2021-05-06] MEDS ORDERED: AMLO2.5T3 (14:25)
[2021-05-06] MEDS ORDERED: PRED20TA (14:25)
[2021-05-06 14:43] LABS: BASO % 0.3 % (0.0-1.0); EOS % 0.1 % (0.0-3.0); HEMATOCRIT 30.2 % (42.0-52.0); HEMOGLOBIN 9.9 g/dl (13.5-17.5); LYMPH # 0.4 10^3/uL (1.5-5.0); LYMPH % 5.7 % (24.0-44.0); MEAN CORPUSCULAR HEMOGLOBIN 31.8 pg (27.0-33.0); MEAN CORPUSCULAR HGB CONC 32.8 g/dl (32.0-36.5); MEAN CORPUSCULAR VOLUME 97.1 fl (80.0-96.0); MONO # 0.1 10^3/uL (0.0-0.8); MONO % 1.8 % (2.0-8.0); NEUTROPHILS # 7.1 10^3/uL (1.5-8.5); NEUTROPHILS % 91.7 % (36.0-66.0); PLATELET COUNT, AUTOMATED 241 10^3/uL (150-450); RED BLOOD COUNT 3.11 10^6/uL (4.30-6.10); WHITE BLOOD COUNT 7.7 10^3/uL (4.0-10.0)
--- NOTE | 2021-05-06 14:58 | REP ---
INDICATION: CHEST PAIN COMPARISON: 06/25/2020 TECHNIQUE: Portable AP view of the chest FINDINGS: The mediastinum and cardiac silhouette are stable and within normal limits for portable technique. The lung [place] are clear without acute consolidation, effusion, or pneumothorax. Skeletal structures are intact. IMPRESSION: No acute cardiopulmonary process appreciated. <Electronically signed by Wilmer Araiza > 05/06/21 [id number]
[2021-05-06 15:12] LABS: CALCIUM LEVEL 8.2 MG/DL (8.8-10.2); CREATININE FOR GFR 1.68 MG/DL (0.70-1.30); POTASSIUM SERUM 4.1 MEQ/L (3.5-5.1)
[2021-05-06 18:00] VITALS: BP 112/59
--- NOTE | 2021-05-06 19:26 | ECGEPIP ---
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
== END 2021-05-06 18:06 | disposition home or self-care (01) ==
LOC: M ED 14:13
DX: R07.89 Other chest pain (principal); J44.1 Chronic obstructive pulmonary disease with (acute) exacerbation; F41.9 Anxiety disorder, unspecified; I25.10 Atherosclerotic heart disease of native coronary artery without angina pectoris; E78.5 Hyperlipidemia, unspecified; Z85.46 Personal history of malignant neoplasm of prostate; N18.30 Chronic kidney disease, stage 3 unspecified; D63.1 Anemia in chronic kidney disease; Z95.5 Presence of coronary angioplasty implant and graft; Z87.891 Personal history of nicotine dependence; Z79.890 Hormone replacement therapy; Z79.899 Other long term (current) drug therapy

== ENCOUNTER → 2022-03-26 | Outpatient (REF) | payer OTHER ==
[~2022-03-26] MED LIST changes: +AMOX875T2; +BUDE3CAP5; +DICY10CA13; -DICY20TA11; +DICY20TA20; -MONT10TA10 PO; +MONT10TA97 PO; +PRED20TA; -ZONI50CA11; +ZONI50CA11 PO
[2022-03-26 20:32] LABS: POTASSIUM SERUM 5.1 MEQ/L (3.5-5.1)
== END ==
LOC: M LAB REF 18:12
PROVIDERS: ATTEND Nurse Practitioner Family
DX: N18.31 Chronic kidney disease, stage 3a (principal); I12.9 Hypertensive chronic kidney disease with stage 1 through stage 4 chronic kidney disease, or unspecified chronic kidney disease; E87.1 Hypo-osmolality and hyponatremia

== ENCOUNTER → 2023-03-27 | Outpatient (REF) | payer OTHER ==
[~2023-03-27] MED LIST changes: +CLOP75TA99 PO; +DICY-61; -DICY10CA13; +FLUT50SP17; -FLUTISP; -PLAV1TAB2 PO
[2023-03-27 17:43] LABS: BACTERIA, URINE AUTO NEGATIVE (NEGATIVE); RBC, URINE AUTO 0 /HPF (0-3); SQUAMOUS EPITHELIAL CELL UR AU 0 /HPF (0-6); WBC, URINE AUTO 0 /HPF (0-3)
== END ==
LOC: M LAB REF 16:57
PROVIDERS: ATTEND Nurse Practitioner Family
DX: R31.29 Other microscopic hematuria (principal)

== ENCOUNTER → 2023-05-28 | Outpatient (CLI) | payer OTHER ==
[~2023-05-28] MED LIST changes: +E-Z-GAS II EFFERVESCENT PACKET (SODIUM BICARB./CITRIC ACID/SIMETHICONE) As Ordered ONE; +E-Z-HD 98% w/w 340GM SUSP BTL As Ordered ONE; +E-Z-PAQUE 96% w/w SUSP 176GM BTL As Ordered ONE
== END ==
LOC: M RAD 07:51
PROVIDERS: ATTEND Physician Assistant Medical
DX: R13.10 Dysphagia, unspecified (principal)

== ENCOUNTER → 2023-07-14 | Outpatient (CLI) | payer OTHER ==
[~2023-07-14] MED LIST changes: +BARIUM SULFATE 700 MG TABLET (E-Z-DISK) As Ordered ONE; -E-Z-GAS II EFFERVESCENT PACKET (SODIUM BICARB./CITRIC ACID/SIMETHICONE) As Ordered ONE; -E-Z-HD 98% w/w 340GM SUSP BTL As Ordered ONE; +VARIBAR NECTAR 40% w/v 240ML SUSP BTL As Ordered ONE; +VARIBAR PUDDING 40% w/v 230ML TUBE As Ordered ONE
== END ==
LOC: M RAD 11:48
PROVIDERS: ATTEND Physician Assistant Medical
DX: R13.10 Dysphagia, unspecified (principal)

== ENCOUNTER 2024-04-20 16:26 | Emergency (ER) | payer OTHER ==
[~2024-04-20] VITALS: Ht 167.6 cm; Wt 64.6 kg
[~2024-04-20 16:26] MED LIST changes: -BARIUM SULFATE 700 MG TABLET (E-Z-DISK) As Ordered ONE; -E-Z-PAQUE 96% w/w SUSP 176GM BTL As Ordered ONE; -FLUT50SP17; +FLUTISP; +IRBE75TA11; -IRBE75TA4; -VARIBAR NECTAR 40% w/v 240ML SUSP BTL As Ordered ONE; -VARIBAR PUDDING 40% w/v 230ML TUBE As Ordered ONE
[2024-04-20] MEDS ORDERED: VITA100T90 PO (16:42)
[2024-04-20] MEDS ORDERED: FERR325T3 PO (16:42)
[2024-04-20] MEDS ORDERED: FAMO1TAB11 (16:42)
[2024-04-20] MEDS ORDERED: MONT10TA97 (16:42)
[2024-04-20] MEDS ORDERED: LEVO112T2 (16:42)
[2024-04-20] MEDS ORDERED: ASPI81CH33 PO (16:42)
[2024-04-20] MEDS ORDERED: VALS1TAB66 (16:42)
[2024-04-20] MEDS ORDERED: METO1TAB32 (16:42)
[2024-04-20] MEDS ORDERED: BREO1INH3 (16:42)
[2024-04-20] MEDS ORDERED: CALC1CAP31 (16:42)
[2024-04-20 18:11] LABS: BASO # 0.1 10^3/uL (0.0-0.2); BASO % 0.6 % (0.0-1.0); EOS # 0.3 10^3/uL (0.0-0.5); EOS % 3.2 % (0.0-3.0); HEMATOCRIT 28.1 % (42.0-52.0); HEMOGLOBIN 9.2 g/dl (13.5-17.5); LYMPH # 1.2 10^3/uL (1.5-5.0); LYMPH % 13.3 % (24.0-44.0); MEAN CORPUSCULAR HEMOGLOBIN 31.8 pg (27.0-33.0); MEAN CORPUSCULAR HGB CONC 32.7 g/dl (32.0-36.5); MEAN CORPUSCULAR VOLUME 97.2 fl (80.0-96.0); MONO # 1.1 10^3/uL (0.0-0.8); MONO % 11.9 % (2.0-8.0); NEUTROPHILS # 6.2 10^3/uL (1.5-8.5); NEUTROPHILS % 70.3 % (36.0-66.0); PLATELET COUNT, AUTOMATED 205 10^3/uL (150-450); RED BLOOD COUNT 2.89 10^6/uL (4.30-6.10); WHITE BLOOD COUNT 8.9 10^3/uL (4.0-10.0)
[2024-04-20 18:27] LABS: ALBUMIN 3.7 G/DL (3.2-5.2); ALKALINE PHOSPHATASE 59 U/L (46-116); ALT/SGPT 25 U/L (7.0-40); AST/SGOT 18 U/L (<34); BILIRUBIN,DIRECT < 0.1 MG/DL (<0.4); BILIRUBIN,TOTAL 0.2 MG/DL (0.3-1.2); BLOOD UREA NITROGEN 29 MG/DL (9-23); CALCIUM LEVEL 9.2 MG/DL (8.3-10.6); CARBON DIOXIDE LEVEL 22 MMOL/L (20-31); CHLORIDE LEVEL 110 MMOL/L (98-107); CREATININE FOR GFR 1.84 MG/DL (0.70-1.30); GLOMERULAR FILTRATION RATE 37.5 (>35); GLUCOSE, FASTING 94 MG/DL (74-106); SODIUM LEVEL 138 MMOL/L (136-145); TOTAL PROTEIN 6.4 G/DL (5.7-8.2)
[2024-04-20] MEDS: IPRATROPIUM 0.5MG/ALBUTEROL 2.5MG INH SOL UD 3ML (DUONEB) NEB PRN (19:04)
[2024-04-20 19:16] LABS: CK-MB VALUE MASS 3.5 NG/ML (<3.6)
[2024-04-20 19:18] LABS: CPK CREATINE PHOSPHOKINASE 64 U/L (46-171); MB/CK RELATIVE INDEX 5.46 (< OR =4)
[2024-04-20] MEDS: methylPREDNISolone 125MG 2ML VIAL IV ONE (19:20)
[2024-04-20 19:28] LABS: ABG BASE EXCESS -5.3 (-2.0-2.0); ABG HCO3 18.7 MMOL/L (22.0-26.0); ABG O2 SATURATION 99.1 % (95.0-99.0); ABG PARTIAL PRESSURE O2 158.9 mmHg (75.0-100.0); ABG STANDARD HCO3 20.1 MMOL/L. (22.0-26.0); ABG TOTAL CO2 19.6 MMOL/L (23.0-31.0); ABG pH (ARTERIAL) 7.398 UNITS (7.350-7.450)
[2024-04-20 20:21] LABS: RSV AMPLIFICATION NEGATIVE (NEGATIVE)
[2024-04-20 20:28] LABS: MB/CK RELATIVE INDEX 4.34 (< OR =4)
[2024-04-20 20:52] VITALS: O2SAT 98
[2024-04-20 21:00] VITALS: TEMP 98
[2024-04-20 21:15] VITALS: BP 142/62; O2SAT 98
[2024-04-20] MEDS ORDERED: PRED20TA PO (21:22)
[2024-04-20] MEDS ORDERED: VENTAER INH (21:26)
== END 2024-04-20 21:36 | disposition home or self-care (01) ==
LOC: M ED 16:26
DX: J44.1 Chronic obstructive pulmonary disease with (acute) exacerbation (principal); R06.02 Shortness of breath; I10 Essential (primary) hypertension; E03.9 Hypothyroidism, unspecified; N18.30 Chronic kidney disease, stage 3 unspecified; F32.A Depression, unspecified; F41.9 Anxiety disorder, unspecified; N40.0 Benign prostatic hyperplasia without lower urinary tract symptoms; K21.9 Gastro-esophageal reflux disease without esophagitis; C61 Malignant neoplasm of prostate; Z87.891 Personal history of nicotine dependence; Z79.52 Long term (current) use of systemic steroids; Z79.82 Long term (current) use of aspirin; Z79.899 Other long term (current) drug therapy
CPT/HCPCS: 36600; 71046; 71250; 80048; 80076; 82550; 82553; 82803; 84484; 85025; 87631; 93005; 93041; 94640; 94760; 96374; 99285; J2919

== ENCOUNTER → 2024-07-14 | Outpatient (REF) | payer OTHER ==
[~2024-07-14] MED LIST changes: +ASPI81CH33 PO; +BREO1INH3; +CALC1CAP31; +FAMO1TAB11; +FERR325T3 PO; +LEVO112T2; +METO1TAB32; +MONT10TA97; +VALS1TAB66; +VENTAER INH; +VITA100T90 PO
[2024-07-14 18:51] LABS: PERCENT SATURATION 27.9 % (19.7-50.0)
== END ==
LOC: M LAB REF 17:34
PROVIDERS: ATTEND Nurse Practitioner Family
DX: D50.9 Iron deficiency anemia, unspecified (principal)

== ENCOUNTER 2025-01-11 14:38 | Emergency (ER) | payer MEDICARE, OTHER ==
[~2025-01-11] VITALS: Ht 167.6 cm; Wt 68.6 kg
[2025-01-11] MEDS ORDERED: ROSU40TA81 PO (15:06)
[2025-01-11] MEDS ORDERED: IPRA0.00 IH (15:06)
[2025-01-11] MEDS ORDERED: FAMO20TA PO (15:06)
[2025-01-11] MEDS ORDERED: CALC1CAP31 PO (15:06)
[2025-01-11] MEDS ORDERED: LEVO100T5 PO (15:06)
[2025-01-11] MEDS ORDERED: ISOS1TAB36 PO (15:06)
[2025-01-11] MEDS ORDERED: oxygen (15:06)
[2025-01-11 15:28] VITALS: TEMP 98.3
[2025-01-11 15:36] LABS: BASO # 0.1 10^3/uL (0.0-0.2); BASO % 1.1 % (0.0-1.0); EOS # 0.1 10^3/uL (0.0-0.5); EOS % 1.4 % (0.0-3.0); HEMATOCRIT 29.8 % (42.0-52.0); HEMOGLOBIN 9.6 g/dl (13.5-17.5); LYMPH % 12.9 % (24.0-44.0); MEAN CORPUSCULAR HEMOGLOBIN 31.3 pg (27.0-33.0); MEAN CORPUSCULAR HGB CONC 32.2 g/dl (32.0-36.5); MEAN CORPUSCULAR VOLUME 97.1 fl (80.0-96.0); MONO # 0.9 10^3/uL (0.0-0.8); MONO % 11.7 % (2.0-8.0); NEUTROPHILS # 5.8 10^3/uL (1.5-8.5); NEUTROPHILS % 72.5 % (36.0-66.0); PLATELET COUNT, AUTOMATED 227 10^3/uL (150-450); RED BLOOD COUNT 3.07 10^6/uL (4.30-6.10)
[2025-01-11 15:55] LABS: LIPASE 51 U/L (12-53)
[2025-01-11 15:58] LABS: ALBUMIN 3.6 G/DL (3.2-5.2); ALKALINE PHOSPHATASE 61 U/L (40-129); ALT/SGPT 14 U/L (7.0-40); AST/SGOT 20 U/L (<34); BILIRUBIN,DIRECT < 0.1 MG/DL (<0.4); BILIRUBIN,TOTAL 0.2 MG/DL (0.3-1.2); BLOOD UREA NITROGEN 24 MG/DL (9-23); CALCIUM LEVEL 8.7 MG/DL (8.3-10.6); CARBON DIOXIDE LEVEL 21 MMOL/L (20-31); CHLORIDE LEVEL 109 MMOL/L (98-107); CK-MB VALUE MASS 2.2 NG/ML (<3.6); CPK CREATINE PHOSPHOKINASE 96 U/L (46-171); CREATININE FOR GFR 2.29 MG/DL (0.70-1.30); GLOMERULAR FILTRATION RATE 27.5 (>35); GLUCOSE, FASTING 116 MG/DL (74-106); MB/CK RELATIVE INDEX 2.29 (< OR =4); POTASSIUM SERUM 4.5 MMOL/L (3.5-5.1); SODIUM LEVEL 141 MMOL/L (136-145); TOTAL PROTEIN 6.4 G/DL (5.7-8.2)
[2025-01-11 15:59] LABS: THYROID STIMULATING HORMONE 1.159 uIU/ML (0.55-4.78)
[2025-01-11 16:00] LABS: FREE T4 0.95 NG/DL (0.89-1.76)
[2025-01-11 16:50] LABS: CK-MB VALUE MASS 2.2 NG/ML (<3.6)
[2025-01-11 16:51] LABS: MB/CK RELATIVE INDEX 2.44 (< OR =4)
[2025-01-11 17:45] VITALS: BP 111/70; O2SAT 98
== END 2025-01-11 17:53 | disposition home or self-care (01) ==
LOC: M ED 14:38
DX: J20.9 Acute bronchitis, unspecified (principal); J44.9 Chronic obstructive pulmonary disease, unspecified; I49.1 Atrial premature depolarization; I10 Essential (primary) hypertension; E78.5 Hyperlipidemia, unspecified; F41.9 Anxiety disorder, unspecified; N18.9 Chronic kidney disease, unspecified; Z87.891 Personal history of nicotine dependence; Z79.52 Long term (current) use of systemic steroids; Z79.82 Long term (current) use of aspirin; Z79.899 Other long term (current) drug therapy

== ENCOUNTER → 2025-03-29 | Outpatient (REF) | payer MEDICARE ==
[~2025-03-29] MED LIST changes: +CALC1CAP31 PO; +COLA100C5 PO; +FAMO20TA PO; +IPRA0.00 IH; +ISOS1TAB36 PO; +LEVO100T5 PO; +ROSU40TA81 PO; +oxygen
[2025-03-29 18:29] LABS: IRON (FE) 20.0 UG/DL (65-175); PERCENT SATURATION 7.2 % (19.7-50.0)
== END ==
LOC: M LAB REF 17:45
PROVIDERS: ATTEND Nurse Practitioner Family
DX: D50.9 Iron deficiency anemia, unspecified (principal)

== ENCOUNTER 2025-04-14 03:21 | Emergency (ER) | payer MEDICARE ==
[~2025-04-14] VITALS: Ht 167.6 cm; Wt 63.6 kg
[2025-04-14 05:13] LABS: PLATELET COUNT, AUTOMATED 281 10^3/uL (150-450)
[2025-04-14 05:47] LABS: ALT/SGPT 28.0 U/L (7.0-40); AST/SGOT 33.0 U/L (<34); CALCIUM LEVEL 8.5 MG/DL (8.3-10.6); CARBON DIOXIDE LEVEL 21.0 MMOL/L (20-31); CHLORIDE LEVEL 112.0 MMOL/L (98-107); CREATININE FOR GFR 1.75 MG/DL (0.70-1.30); GLOMERULAR FILTRATION RATE 37.7 (>35); IRON (FE) 111.0 UG/DL (65-175); POTASSIUM SERUM 4.1 MMOL/L (3.5-5.1); SODIUM LEVEL 145.0 MMOL/L (136-145)
[2025-04-14] MEDS: ONDANSETRON 4MG 2ML VIAL IV ONE (06:58)
[2025-04-14] MEDS: NS (Normal Saline) 0.9% 1,000 ML IV ONE (06:58)
[2025-04-14 07:47] LABS: MAGNESIUM LEVEL 1.9 MG/DL (1.8-2.4)
[2025-04-14 07:53] LABS: CPK CREATINE PHOSPHOKINASE 58.0 U/L (46-171)
[2025-04-14 09:44] LABS: APPEARANCE, URINE CLEAR (CLEAR); BACTERIA, URINE AUTO NEGATIVE (NEGATIVE); BILIRUBIN, URINE AUTO NEGATIVE (NEGATIVE); BLOOD, URINE BLOOD 1+ (NEGATIVE); GLUCOSE, URINE (UA) AUTO NEGATIVE (NEGATIVE); KETONE, URINE AUTO NEGATIVE (NEGATIVE); LEUKOCYTE ESTERASE, URINE AUTO NEGATIVE (NEGATIVE); MUCUS, URINE SMALL (NEGATIVE); NITRITE, URINE AUTO NEGATIVE (NEGATIVE); PROTEIN, URINE AUTO NEGATIVE (NEGATIVE); RBC, URINE AUTO 1 /HPF (0-3); SPECIFIC GRAVITY URINE AUTO 1.008 (1.002-1.035); SQUAMOUS EPITHELIAL CELL UR AU 0 /HPF (0-6); UROBILINOGEN, URINE AUTO 0.2 mg/dL (0.0-2.0); WBC, URINE AUTO 0 /HPF (0-3)
[2025-04-14 10:30] VITALS: BP 134/65; TEMP 97.6; O2SAT 98
== END 2025-04-14 10:41 | disposition home or self-care (01) ==
LOC: M ED 03:21
DX: R11.0 Nausea (principal); H81.10 Benign paroxysmal vertigo, unspecified ear; D63.1 Anemia in chronic kidney disease; N18.30 Chronic kidney disease, stage 3 unspecified; R91.1 Solitary pulmonary nodule; J98.11 Atelectasis; I10 Essential (primary) hypertension; K21.9 Gastro-esophageal reflux disease without esophagitis; E78.5 Hyperlipidemia, unspecified; Z79.52 Long term (current) use of systemic steroids; Z79.82 Long term (current) use of aspirin; Z79.1 Long term (current) use of non-steroidal anti-inflammatories (NSAID); Z79.899 Other long term (current) drug therapy
CPT/HCPCS: 70450; 74176; 80053; 81001; 82550; 83540; 83735; 84443; 85027; 87486; 87581; 87633; 87798; 93005; 93041; 96361; 96374; 99285; J2405

== ENCOUNTER 2025-04-25 07:12 | Outpatient (CLI) | payer MEDICARE ==
[~2025-04-25] VITALS: Ht 195.6 cm; Wt 60.0 kg
[~2025-04-25 07:12] MED LIST changes: +ALBUTEROL SULFATE 2.5 MG/0.5 ML INH CONCENTRATE NEB SOLN INH PRN; +EPINEPHrine INJ 1 MG/ML 1ML AMP IM PRN; +diphenhydrAMINE 50 MG/ML VIAL IV PRN
[2025-04-25 07:55] VITALS: BP 168/74; O2SAT 97
[2025-04-25] MEDS ORDERED: NS (Normal Saline) 0.9% 1,000 ML IV SCH (08:00)
[2025-04-25] MEDS: IRON SUCROSE 25 MG in NS 23.75 ML IV ONE (08:29)
[2025-04-25 08:41] VITALS: BP 156/60; O2SAT 97
[2025-04-25] MEDS: IRON SUCROSE 475 MG in NS 250 ML IV ONE (09:03)
[2025-04-25 10:00] VITALS: BP 140/70; O2SAT 96
[2025-04-25 10:58] VITALS: BP 138/68; O2SAT 95
[2025-04-25 12:00] VITALS: BP 143/70; O2SAT 96
[2025-04-25 12:45] VITALS: BP 144/67; O2SAT 97
== END 2025-04-25 13:15 ==
LOC: M INFU 07:12
PROVIDERS: ATTEND Nurse Practitioner Family
DX: D50.9 Iron deficiency anemia, unspecified (principal)
CPT/HCPCS: 96365; 96366; J1756

== ENCOUNTER 2025-05-09 08:09 | Outpatient (CLI) | payer MEDICARE ==
[~2025-05-09] VITALS: Ht 167.6 cm; Wt 59.5 kg
[~2025-05-09 08:09] MED LIST changes: +NS (Normal Saline) 0.9% 1,000 ML IV SCH
[2025-05-09 08:20] VITALS: BP 129/83; O2SAT 97
[2025-05-09] MEDS: IRON SUCROSE 500 MG in NS 250 ML OVER 4 HRS IV ONE (08:51)
[2025-05-09 10:00] VITALS: BP 123/89; O2SAT 97
[2025-05-09 11:00] VITALS: BP 118/82; O2SAT 94
[2025-05-09 12:00] VITALS: BP 120/81; O2SAT 95
[2025-05-09 12:45] VITALS: BP 139/70; O2SAT 98
== END 2025-05-09 12:47 | disposition home or self-care (01) ==
LOC: M INFU 08:09
PROVIDERS: ATTEND Nurse Practitioner Family
DX: D50.9 Iron deficiency anemia, unspecified (principal)
CPT/HCPCS: 96365; 96366; J1756

== ENCOUNTER 2025-07-03 09:52 | Emergency (ER) | payer MEDICARE ==
[~2025-07-03 09:52] MED LIST changes: -ALBUTEROL SULFATE 2.5 MG/0.5 ML INH CONCENTRATE NEB SOLN INH PRN; -BREO1INH3; +BREO1INH3 INH; -EPINEPHrine INJ 1 MG/ML 1ML AMP IM PRN; -METO1TAB32; +METO1TAB32 PO; -MONT10TA97; -NS (Normal Saline) 0.9% 1,000 ML IV SCH; -diphenhydrAMINE 50 MG/ML VIAL IV PRN
[2025-07-03 10:42] LABS: BASO # 0.1 10^3/uL (0.0-0.2); BASO % 1.4 % (0.0-1.0); EOS # 0.3 10^3/uL (0.0-0.5); EOS % 4.2 % (0.0-3.0); LYMPH # 1.2 10^3/uL (1.5-5.0); LYMPH % 18.9 % (24.0-44.0); MONO # 0.7 10^3/uL (0.0-0.8); MONO % 11.7 % (2.0-8.0); NEUTROPHILS # 4.0 10^3/uL (1.5-8.5); NEUTROPHILS % 63.5 % (36.0-66.0); PLATELET COUNT, AUTOMATED 213 10^3/uL (150-450)
[2025-07-03 11:07] LABS: ALT/SGPT 27 U/L (7.0-40); AST/SGOT 31 U/L (<34); CALCIUM LEVEL 8.7 MG/DL (8.3-10.6); CARBON DIOXIDE LEVEL 22 MMOL/L (20-31); CHLORIDE LEVEL 111 MMOL/L (98-107); CREATININE FOR GFR 2.04 MG/DL (0.70-1.30); GLOMERULAR FILTRATION RATE 31.4 (>35); POTASSIUM SERUM 4.8 MMOL/L (3.5-5.1); SODIUM LEVEL 144 MMOL/L (136-145)
[2025-07-03 11:17] LABS: THYROXINE (T4) 6.4 UG/DL (4.5-10.9)
[2025-07-03 12:25] VITALS: BP 130/61; TEMP 97.1
[2025-07-03 12:31] VITALS: O2SAT 100
== END 2025-07-03 12:47 | disposition home or self-care (01) ==
LOC: M ED 09:52
DX: R05.9 Cough, unspecified (principal); I10 Essential (primary) hypertension; J45.909 Unspecified asthma, uncomplicated; E78.5 Hyperlipidemia, unspecified; F41.9 Anxiety disorder, unspecified; F32.A Depression, unspecified; N40.0 Benign prostatic hyperplasia without lower urinary tract symptoms; N18.30 Chronic kidney disease, stage 3 unspecified; Z87.891 Personal history of nicotine dependence; Z86.79 Personal history of other diseases of the circulatory system

== ENCOUNTER 2025-07-11 11:13 | Day surgery (SDC) | payer MEDICARE ==
[~2025-07-11] VITALS: Ht 168.9 cm; Wt 59.9 kg
[2025-07-11] MEDS ORDERED: ALBUTEROL SULFATE 2.5 MG/0.5 ML INH CONCENTRATE NEB SOLN NEB ONE (12:15)
[2025-07-11] MEDS ORDERED: GLYCOPYRROLATE INJ 0.2 MG/ML 2 ML VIAL As Ordered ONE (12:36)
[2025-07-11] MEDS ORDERED: LIDOCAINE 2% 100 MG/5 ML SDV (FOR ANES.) As Ordered ONE (12:36)
[2025-07-11 12:51] VITALS: TEMP 97
[2025-07-11 13:10] VITALS: BP 117/55; O2SAT 96
== END 2025-07-11 13:11 | disposition home or self-care (01) ==
LOC: M OPP 11:13
PROVIDERS: ATTEND Internal Medicine Gastroenterology
DX: R93.3 Abnormal findings on diagnostic imaging of other parts of digestive tract (principal); G47.30 Sleep apnea, unspecified; Z79.82 Long term (current) use of aspirin; Z79.51 Long term (current) use of inhaled steroids; Z79.899 Other long term (current) drug therapy; Z99.81 Dependence on supplemental oxygen; J44.9 Chronic obstructive pulmonary disease, unspecified; Z87.891 Personal history of nicotine dependence
CPT/HCPCS: 43239; 88305; J1596